=== PATIENT | male | born 1945 | race Caucasian/White ===

== ENCOUNTER → 2021-09-20 | Outpatient (CLI) | payer MEDICARE | LOC: RAD 10:39 | DX: M17.0 Bilateral primary osteoarthritis of knee (principal) ==

== ENCOUNTER → 2021-10-26 | Outpatient (CLI) | payer MEDICARE | LOC: RAD 16:31 | DX: M17.11 Unilateral primary osteoarthritis, right knee (principal) ==

== ENCOUNTER 2022-07-13 16:31 | Emergency (ER) | payer OTHER ==
[2022-07-13 17:07] VITALS: BP 166/91
[2022-07-13] MEDS ORDERED: ROSUVASTATIN CA40 MG PO (17:07)
[2022-07-13] MEDS ORDERED: ELIQUIS5 MG PO (17:07)
[2022-07-13] MEDS ORDERED: TRAMADOL 50 MG TAB PO (17:07)
[2022-07-13] MEDS ORDERED: LISINOPRIL40 MG PO (17:07)
[2022-07-13] MEDS ORDERED: NORVASC 10MG10 MG PO (17:07)
== END 2022-07-13 17:59 | disposition home or self-care (01) ==
LOC: ED 16:31
DX: Z04.1 Encounter for examination and observation following transport accident (principal); Z28.310 Unvaccinated for COVID-19

== ENCOUNTER → 2022-10-03 | Outpatient (CLI) | payer MEDICARE ==
[~2022-10-03] MED LIST: ELIQUIS5 MG PO; LISINOPRIL40 MG PO; NORVASC 10MG10 MG PO; ROSUVASTATIN CA40 MG PO; TRAMADOL 50 MG TAB PO
== END ==
LOC: RAD 09:33
DX: M17.11 Unilateral primary osteoarthritis, right knee (principal)

== ENCOUNTER → 2023-09-04 | Outpatient (CLI) | payer MEDICARE | LOC: RAD 09:24 | DX: M16.0 Bilateral primary osteoarthritis of hip (principal) ==

== ENCOUNTER → 2023-11-27 | Outpatient (CLI) | payer MEDICARE | LOC: RAD 09:08 → MSO 14:41 | DX: M17.11 Unilateral primary osteoarthritis, right knee (principal) ==

== ENCOUNTER → 2024-03-04 | Outpatient (CLI) | payer MEDICARE | LOC: RAD 08:58 | DX: M17.11 Unilateral primary osteoarthritis, right knee (principal) ==